=== PATIENT | male | born 1975 | race Caucasian/White ===

== ENCOUNTER 2020-06-27 08:57 | Emergency (ER) | payer OTHER ==
[~2020-06-27] VITALS: Ht 177.8 cm; Wt 75.0 kg
[2020-06-27] MEDS ORDERED: iohexol 350MG/ML 100ml bottle IV ONE (09:21)
[2020-06-27 09:34] LABS: BASOPHILS % (AUTO) 0.3 % (0-1); EOSINOPHILS # (AUTO) 0.1 X10'3 (0-0.9); EOSINOPHILS % (AUTO) 0.8 % (0-6); HEMOGLOBIN 16.4 g/dl (14.0-17.9); LYMPHOCYTES # (AUTO) 1.9 X10'3 (1.1-4.8); LYMPHOCYTES % (AUTO) 22.1 % (21-51); MEAN CORPUSCULAR HEMOGLOBIN 32.6 PG (27.0-31.0); MEAN CORPUSCULAR HGB CONC 34.8 g/dL (33.0-36.5); MEAN CORPUSCULAR VOLUME 93.8 FL (78-98); MEAN PLATELET VOLUME 8.4 FL (7.4-10.4); MONOCYTES # (AUTO) 0.8 X10'3 (0-0.9); MONOCYTES % (AUTO) 8.8 % (2-12); NEUTROPHILS # (AUTO) 5.8 X10'3 (1.8-7.7); PLATELET COUNT 244 X10'3 (140-440); RED BLOOD COUNT 5.02 X10'6 (4.70-6.10); RED CELL DISTRIBUTION WIDTH 12.9 % (11.5-14.5); WHITE BLOOD COUNT 8.6 X10'3 (4.5-11.0)
[2020-06-27 09:47] LABS: PARTIAL THROMBOPLASTIN TIME 30 SECONDS (22-32)
[2020-06-27 09:57] LABS: ALANINE AMINOTRANSFERASE 31 U/L (12-78); ALBUMIN 4.4 G/DL (3.4-5.0); ALBUMIN/GLOBULIN RATIO 1.2 (1.1-1.5); ALKALINE PHOSPHATASE 74 IU/L (46-116); ANION GAP 10 (8-16); ASPARTATE AMINO TRANSFERASE 20 U/L (10-37); BILIRUBIN,TOTAL 0.4 MG/DL (0.1-1.0); BLOOD UREA NITROGEN 9 MG/DL (7-18); BUN/CREATININE RATIO 8.4 (5.4-32.0); CHLORIDE 103 MMOL/L (99-107); CREATININE 1.07 MG/DL (0.60-1.10); GLUCOSE 120 MG/DL (70-104); POTASSIUM 3.6 MMOL/L (3.5-5.1); SODIUM 140 MMOL/L (135-145); eGFR 75 ML/MIN
[2020-06-27] MEDS ORDERED: LORazepam 2 mg/ml vial IV ONE (10:05)
--- NOTE | 2020-06-27 10:30 | NUR ---
pt stated that he is feeling better the experessive aphasia is better even the neck pain he want to go to his destination and can,t stay in the hospital informed that he might have to be admitted ,pt refused to take lorazepam iv as he has to drive ,notified dr ceron as per md he will talk to the pt.
[2020-06-27 10:36] VITALS: BP 141/109
== END 2020-06-27 11:49 | disposition home or self-care (01) ==
LOC: ER 08:57
DX: R47.1 Dysarthria and anarthria (principal)
CPT/HCPCS: 36415; 70450; 70496; 70498; 71045; 80053; 85025; 85610; 85651; 85730; 93005; 99285; Q9967